=== PATIENT | male | born 1960 | race Caucasian/White ===

== ENCOUNTER 2020-04-10 10:16 | Emergency (ER) | payer SELFPAY ==
[~2020-04-10] VITALS: Ht 180.3 cm; Wt 104.5 kg
[2020-04-10 10:17] VITALS: BP 190/98; TEMP 97.9
[2020-04-10] MEDS ORDERED: CEPHALEXIN500 M1 PO (12:13)
[2020-04-10 12:21] VITALS: PULSE 73
== END 2020-04-10 12:23 | disposition home or self-care (01) ==
LOC: COL.ER 10:16
DX: S61.411A Laceration without foreign body of right hand, initial encounter (principal); Z98.890 Other specified postprocedural states; W29.0XXA Contact with powered kitchen appliance, initial encounter; Y92.89 Other specified places as the place of occurrence of the external cause; Y99.0 Civilian activity done for income or pay

== ENCOUNTER 2020-04-20 10:26 | Outpatient (RCR) | payer OTHER ==
[~2020-04-20 10:26] MED LIST: CEPHALEXIN500 M1 PO
== END 2020-07-19 | disposition home or self-care (01) ==
LOC: WSOH
DX: S61.411D Laceration without foreign body of right hand, subsequent encounter (principal); Z48.02 Encounter for removal of sutures; Y99.0 Civilian activity done for income or pay